=== PATIENT | male | born 1980 | race African-American/Black ===

== ENCOUNTER 2018-09-11 07:37 | Emergency (ER) | payer MEDICAID ==
[~2018-09-11] VITALS: Ht 167.6 cm; Wt 81.0 kg
[2018-09-11] MEDS ORDERED: MORPHINE SULFATE 4 MG/ML CPJ (NOT FOR IM USE) IV STA ×2 (07:38→08:35)
[2018-09-11] MEDS ORDERED: ONDANSETRON HCL 4MG/2ML INJ IV STA ×2 (07:38→08:35)
[2018-09-11] MEDS ORDERED: TETANUS, DIPHTHERIA, PERTUSSIS VAC/PF 0.5ML (>7YR OLD) IM ONE (07:45)
[2018-09-11] MEDS ORDERED: LACTATED RINGERS IV SCH (08:00)
[2018-09-11 08:06] LABS: BASOPHILS % 0.5 % (0.0-2.0); HEMATOCRIT. 41.9 % (42.0-52.0); LYMPHOCYTES % 29.5 % (20.0-50.0); MEAN CORPUSCULAR VOLUME 92.9 fL (80.0-94.0); MEAN PLATELET VOLUME 7.1 fl (7.4-10.4); MONOCYTES % 7.4 % (2.0-8.0); NEUTROPHILS % 58.6 % (40.0-76.0); PLATELET 280 x1000/uL (130-400); RED BLOOD CELL COUNT 4.51 mill/uL (4.7-6.1); RED CELL DISTRIBUTION WIDTH 14.1 % (11.6-14.6)
[2018-09-11 08:10] LABS: CHLORIDE 106 mEq/L (98-107)
[2018-09-11 12:17] VITALS: BP 126/80
== END 2018-09-11 12:30 | disposition short-term general hospital (02) ==
LOC: ER 08:09
DX: T22.20XA Burn of second degree of shoulder and upper limb, except wrist and hand, unspecified site, initial encounter (principal); T24.211A Burn of second degree of right thigh, initial encounter; T21.22XA Burn of second degree of abdominal wall, initial encounter; T31.0 Burns involving less than 10% of body surface; F17.200 Nicotine dependence, unspecified, uncomplicated; F12.10 Cannabis abuse, uncomplicated; X08.8XXA Exposure to other specified smoke, fire and flames, initial encounter; Y93.89 Activity, other specified; Y92.89 Other specified places as the place of occurrence of the external cause; Y99.8 Other external cause status
CPT/HCPCS: 36415; 80053; 85025; 90471; 90715; 96374; 96375; 96376; 99284; J2270; J2405; J7120